=== PATIENT | female | born 1995 | race Caucasian/White ===

== ENCOUNTER 2018-08-26 09:44 | Inpatient (IN) ==
--- OUTSIDE RECORDS SUMMARY | 2018-08-26 13:01 | External Medical Summary | Continuity of Care Document ---
:1995 Author Name Madonna Alexander, Provider Address Unavailable Unavailable , Care Team Providers Name Role Phone Rosie Guy DO Unavailable [email or web address] Unavailable Unavailable Unavailable Unavailable Unavailable Problems related leg pain in third trimester, antepartum (6 46.83) (O26.893) Post term over 40 weeks (645.10) (O48.0) Encounter for supervision of normal preg bethany in multigravida in third trimester (V22.1) (Z34.83) Allergies and Adverse Reactions Pertussis Vaccine (Allergy) Reaction: Se izures Nickel (Allergy) Medications Vitamin TABS Refills: 0 Tums CHEW Refills: 0 Tylenol 500 MG CAPS Refills: 0 Procedures Procedures not documented Immunizations Immunizations not documented Family History Mother Family history of thyroid disease (V18.19) (Z83.49) Status: Active Family history of hypothyroidism (V18.19) (Z83.49) Status: A ctive Father Family history of cardiac disorder (V17.49) (Z82.49) Status: Active Family history of hypertension (V17.49) (Z82.49) Status: Act luis Family history of myocardial infarction (V17.3) (Z82.49) Sta tus: Active Social History - Smoking Status Former smoker Plan of Treatment Planned Observations Planned Goals not documented Results Non-stress test (Pending) Laboratory: In [place] 20-Aug-2018 12:00 Non-Stress Test Non-Reactive Non-stress test (Pending) Laboratory: In [place] 23-Aug-2018 14:43 Non-Stress Test Non-Reactive Vital Signs 23-Aug-2018 11:24 Systolic 122 mm[Hg] Diastolic 80 mm[Hg] Weight 223.8 lb Height 66 in BSA Calculated 2.1 m2 BMI Calculated 36.12 kg/m2 20-Aug-2018 10:50 Systolic 110 mm[Hg] Diastolic 72 mm[Hg] Weight 222.2 lb Height 66 in BSA Calculated 2.09 m2 BMI Calculated 35.86 kg/m2 13-Aug-2018 8:54 Systolic 118 mm[Hg] Diastolic 76 mm[Hg] Weight 221.6 lb Height 66 in BSA Calculated 2.09 m2 BMI Calculated 35.77 kg/m2 06-Aug-2018 13:45 Systolic 116 mm[Hg] Diastolic 78 mm[Hg] Weight 219.4 lb Height 66 in BSA Calculated 2.08 m2 BMI Calculated 35.41 kg/m2 30-Jul-2018 8:58 Systolic 118 mm[Hg] Diastolic 82 mm[Hg] Weight 220.125 lb Height 66 in BSA Calculated 2.08 m2 BMI Calculated 35.53 kg/m2 Encounters Appointment; Rosie Guy DO 23-Aug-2018 12:10 Encounter Diagnosis: Problem not documented Appointment; OB SC1, Nonstress Test 23-Aug-2018 11:30 Encounter Diagnosis: Problem not documented Appointment; OBGYN SC1, Ultrasound 20-Aug-2018 11:30 Encounter Diagnosis: Problem not documented Appointment; Rosie Guy DO 20-Aug-2018 11:00 Encounter Diagnosis: Problem not documented Appointment; OB SC1, Nonstress Test 20-Aug-2018 10:30 Encounter Diagnosis: Problem not documented Appointment; Rosie Guy DO 13-Aug-2018 9:00 Encounter Diagnosis: Problem not documented Appointment; Myrtle Arce M.D. 06-Aug-2018 14:20 Encounter Diagnosis: Problem not documented Appointment; Myrtle Arce M.D. 30-Jul-2018 9:00 Encounter Diagnosis: Problem not documented Appointment; Jluis Lopes M.D. 23-Jul-2018 11:40 Encounter Diagnosis: Problem not documented Appointment; Carlee Goddard M.D. 09-Jul-2018 11:20 Encounter Diagnosis: Problem not documented Appointment; Rosie Guy DO 25-Jun-2018 10:00 Encounter Diagnosis: Problem not documented Appointment; Champ Valles M.D. 11-Jun-2018 9:30 Encounter Diagnosis: Problem not documented Appointment; Carlee Goddard M.D. 28-May-2018 9:40 Encounter Diagnosis: Problem not documented Appointment; Champ Valles M.D. 14-May-2018 11:50 Encounter Diagnosis: Problem not documented Appointment; Rubia Gill M.D. 16-Apr-2018 11:50 Encounter Diagnosis: Problem not documented Appointment; OBGYN SC1, Ultrasound 04-Apr-2018 9:45 Encounter Diagnosis: Problem not documented Appointment; Madisyn Ibarra M.D. 04-Apr-2018 9:30 Encounter Diagnosis: Problem not documented Appointment; Jus Thompson M.D. 08-Mar-2018 10:50 Encounter Diagnosis: Problem not documented Appointment; Jluis Lopes M.D. 12-Feb-2018 9:40 Encounter Diagnosis: Problem not documented Appointment; Madisyn Ibarra M.D. 11-Jan-2018 12:00 Encounter Diagnosis: Problem not documented Appointment; OB SC1, Procedure Rm 11-Jan-2018 12:00 Encounter Diagnosis: Problem not documented Appointment; OBGYN SC2, Ultrasound 11-Jan-2018 11:30 Encounter Diagnosis: Problem not documented Appointment; OB SC1, Nursing Station 03-Jan-2018 13:30 Encounter Diagnosis: Problem not documented Appointment; Adarsh Garcia M.D. 09-May-2017 8:30 Encounter Diagnosis: Problem not documented Appointment; OBGYN SC1, Ultrasound 23-Aug-2018 13:30 Encounter Diagnosis: Problem not documented
--- NOTE | 2018-08-26 13:53 | History & Physical Report ---
Date of Service August 26, 2018 Assessment & Plan (1) Elective induction of labor planned: 22 year old here for induction of labor for post dates * Patient not having signs symptoms of pre eclampsia but tells me she did during delivery of her past and was placed on MgSO4 at that time. * Patient with reassuring FHT * oxytocin 30 units in 500 mL per labor induction protocol * NPO * Anticipate History of Present Illness Primary Care Provider: Jamshid Canada DO Ms. Caitlyn Prince is a 22 year old who is here for induction of labor at 41 weeks for post dates with history of pre eclampsia per patient on last . She has been feeling irregular painful contractions that are occur a couple times per day every day. At one point last week she had three in a row that were 10 minutes apart, but those subsided. She has consistently felt good movement, has not noted any vaginal bleeding or but does feel that she lost her mucus plug last night when she wiped and noticed a dark brown mucus streak on her toilet paper. She has been dealing with heartburn and has no other pain or discomfort. She denies any headache, vision changes or swelling of hands or feet. Her only other resulted in delivery of a healthy girl delivered spontaneously at 40 weeks by Spontaneous vaginal delivery. Blood type is O+, GBS -, Rubella Immune. All other serologic testing normal, no sign of GDM. At last appointment patient was found to be 3/70/-2 on exam. 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 Here with her mother. Allergies Allergy/AdvReac Type Severity Reaction Status Date / Time nickel Allergy RASH Verified 08/26/18 14:39 Pertussis Vaccines Allergy Seizure Verified 08/26/18 14:39 Home Medications Home Medications Medication Instructions Recorded Confirmed Type vit-iron fum-folic ac 1 tab PO DAILY 06/16/18 08/26/18 History [ Vitamin] Past Med/Surg History Medical History History of anemia History of hemorrhage History of induced hypertension Hyperthyroidism Social History Preferred Language: Citizen Of [place] Oxygraph Operator Required: No Beliefs That Will Affect Care: None marital status: Single Current Living Situation: Family Current Living Situation Comment: currently staying with parents, but does have have her own apartment. Other Information That Helps Us Care for You: No Feels Safe at Home: Yes Safety Concerns: Feels Safe At This Time Smoking Status: Former smoker Do You Dip or Chew Tobacco: No Second Hand Exposure: No Tobacco Cessation Education Requested by Patient: No Hx Alcohol Use: No Hx Substance Use: No Review of Systems Review of Systems: All systems reviewed & are unremarkable except as noted in HPI & below Physical Exam Physical Exam: Constitutional: well developed and well nourished; no acute d istress Respiratory: normal respiratory effort, lungs clear to auscultation Cardiovascular: RRR, no murmur, no edema Extremities: no calf tenderness Gastrointestinal (Abdomen): Inspection/Auscultation: + abdomen distended Percussion/Palpation: abdomen soft; abdomen nontender Gravid uterus Skin: no rashes, warm and dry Genitourinary: heart tones present in 130's, appear moderately variable. Pelvic Exam: 40/70/-1 Results & Data Vital Signs (Past 12 Hours) Vital Signs Temp Pulse Resp BP 08/26/18 13:17 83 121/87 08/26/18 13:16 36.8 C 18 Supervising Physician Co-Signing Physician Notes Resident Physician Supervision Note: I interviewed and examined the patient. Discussed with Dr. Freeman and agree with findings and plan as documented in the note. Any exceptions or clarifications are listed here: none. Agree with above. IOL with pitocin. Documented By: Rosie Guy DO Resident Activity Tracking Resident Involvement: Resident Care Provided Care Provided: OB Delivery
[2018-08-26] MEDS ORDERED: OXYTOCIN 30 UNITS/500 ML BAG IV PRN ×3 (14:22→23:23)
[2018-08-26 15:03] LABS: Hematocrit (blood only) 29.8 % (37-47); Hemoglobin 9.9 g/dL (12.0-16.0); Mean Corpuscular Volume 86.1 fL (80-100); Mean Platelet Volume 9.3 fL (7.4-10.4); Platelet Count 273 K/uL (130-400); RDW Coefficient of Variation 13.7 % (11.5-14.5); RDW Standard Deviation 42.9 fL (36.4-46.3); Red Blood Count 3.46 M/uL (4.2-5.4); White Blood Count 10.49 K/uL (4.8-10.8)
[2018-08-26] MEDS: LACTATED RINGER'S 1,000 ML IV PRN ×3 (15:27→20:59)
[2018-08-26 15:34] LABS: Hepatitis B Surface Antibody Non-Immune
[2018-08-26 15:35] LABS: Mean Corpuscular Hgb Conc 33.2 g/dL (32-36)
[2018-08-26] MEDS ORDERED: BUPIVACAINE 0.25% 30 ML VIAL ONE (17:32)
[2018-08-26] MEDS ORDERED: fentaNYL 2MCG/ML ROPIV 1.25MG/ML 100 ML BAG EPI ONE (17:33)
[2018-08-26] MEDS ORDERED: fentaNYL citrate 100 MCG/2 ML VIAL ONE (17:33)
[2018-08-26] MEDS ORDERED: ePHEDrine sulfate 50 MG/ML AMP ONE (17:33)
--- NOTE | 2018-08-26 17:43 | Anesthesiology Consultation ---
Date of Service August 26, 2018 Assessment & Plan Chart Review Chart Review: Patient NOT seen in Pre Admission Testing and Acceptable Risk for Labor Epidural Consults Requested none ASA ASA2 Proposed Anesthesia Anesthesia Type: Labor Epidural and CSE Risk / Benefits Reviewed With: PT / POA / Parent / Guardian, Accepts Plan and Informed Consent Obtained History Height/Weight Height: 5 ft 7 in Weight: 101.378 kg Allergies Allergy/AdvReac Type Severity Reaction Status Date / Time nickel Allergy RASH Verified 08/26/18 14:39 Pertussis Vaccines Allergy Seizure Verified 08/26/18 14:39 Medications Home Medications Medication Instructions Recorded Confirmed Last Taken vit-iron fum-folic ac 1 tab PO DAILY 06/16/18 08/26/18 08/26/18 06:00 [ Vitamin] Active Medications Generic Name Dose Route Start Last Admin Trade Name Freq PRN Reason Stop Dose Admin Lactated Ringer's 1,000 mls @ 125 mls/hr 08/26/18 14:22 08/26/18 17:30 Lr IV 08/28/18 14:21 999 mls/hr .Q8H PRN Infusion L&D Protocol Protocol Oxytocin 30 units in 500 mls @ 3 mls/hr 08/26/18 14:55 08/26/18 16:52 Pitocin IV 08/28/18 14:54 0.18 units/hr .Q24H PRN 3 mls/hr Labor Induction/Augmentation Titration Protocol 0.18 UNITS/HR NPO Date Last Intake of Fluids: 08/26/18 Time Last Intake of Fluids: 17:00 Date Last Intake of Solids: 08/26/18 Time Last Intake of Solids: 12:00 Past Medical History Medical History History of anemia History of hemorrhage History of induced hypertension Hyperthyroidism Exercise / Class Metabolic Activity II 4-5 Yardwork/Stairs/Walk up hill Past Anesthesia History No Hx of Anesthesia Complications and No Family Hx of Anesthesia Complications History of PONV No Hx of PONV Social History Smoking Status: Former smoker Do You Dip or Chew Tobacco: No Hx Alcohol Use: No Hx Substance Use: No substance use type: does not use Review of Systems no chest pain or sob Physical Exam Vital Signs Last Vital Signs Temp 36.8 C 08/26/18 13:16 Pulse 79 05/20/19 17:39 Resp 18 08/26/18 13:16 BP 129/78 08/26/18 17:29 Pulse Ox 100 08/26/18 17:39 ENMT Mouth: no TMJ abnormality Thyromental Distance: > or= 3.5 Finger Breadths Mallampati Class: II Neck normal visual inspection Respiratory normal respiratory effort Auscultation: lungs clear to auscultation bilaterally Cardiovascular Rate/Rhythm: regular rate and regular rhythm Musculoskeletal Spine: normal cervical ROM Neurologic moves all extremities Psychiatric Orientation: alert and oriented x 3 Testing Other Testing WBC 10.5 Hgb 9.9 Plt 273
[2018-08-26] MEDS ORDERED: DiphenhydrAMINE HCL 50 MG/ML VIAL IV PRN (17:58)
[2018-08-26] MEDS ORDERED: ONDANSETRON INJ 2 MG/ML 2 ML VIAL IV PRN (17:58)
[2018-08-26] MEDS ORDERED: ePHEDrine sulfate 50 MG/ML AMP IV PRN (17:58)
[2018-08-26] MEDS ORDERED: NALOXONE HCL 1 MG in SODIUM CHLORIDE 0.9% 1000ML 1,000 ML IV PRN (17:58)
[2018-08-26] MEDS ORDERED: NALOXONE HCL 0.4 MG/1 ML VIAL/CARP IV PRN (17:58)
[2018-08-26] MEDS ORDERED: NALBUPHINE HCL INJ 10 MG/ML AMP IV PRN (17:58)
[2018-08-26] MEDS ORDERED: fentaNYL 2MCG/ML ROPIV 1.25MG/ML 100 ML BAG EPI PRN (17:58)
--- NOTE | 2018-08-26 18:45 | Obstetrical Progress Note ---
Date of Service August 26, 2018 Subjective Comfortable with epidural. FHT Cat 1. [place] Q 2-3 AROM clear fluid. SVE 5-6/70/-1 Anticipate . Results & Data Vital Signs (Past 12 Hours) Vital Signs Temp Pulse Resp BP Pulse Ox 08/26/18 18:42 75 132/73 08/26/18 18:39 91 H 98 08/26/18 18:35 77 132/81 08/26/18 18:34 78 98 08/26/18 18:30 80 123/70 08/26/18 18:29 79 100 08/26/18 18:25 73 114/61 08/26/18 18:24 77 99 08/26/18 18:20 76 133/76 08/26/18 18:19 76 100 08/26/18 18:14 98 H 131/69 100 08/26/18 18:12 93 H 145/82 H 08/26/18 18:10 88 141/89 H 08/26/18 18:09 101 H 100 08/26/18 18:08 89 139/74 08/26/18 18:06 93 H 146/80 H 08/26/18 18:04 100 H 145/80 H 100 08/26/18 18:02 85 142/80 H 08/26/18 18:00 87 133/80 08/26/18 17:59 89 100 08/26/18 17:58 85 128/109 H 08/26/18 17:54 71 100 08/26/18 17:51 98 H 88 L 08/26/18 17:49 96 H 100 08/26/18 17:45 87 92 08/26/18 17:44 84 98 08/26/18 17:39 79 100 08/26/18 17:29 81 129/78 08/26/18 16:29 58 L 113/69 08/26/18 15:27 68 127/79 08/26/18 13:17 83 121/87 08/26/18 13:16 98.2 F 18
--- NOTE | 2018-08-26 23:12 | Procedure Note ---
Vaginal Delivery Summary Date of Service August 26, 2018 Vaginal Delivery Summary Vaginal Delivery Summary: Pre-delivery diagnoses: 22yo @ 41w, IOL for postdates Post-delivery diagnoses: same Procedure: spontaneous vaginal delivery, repair of 1st degree perineal lace ration Surgeon: Rosie Guy DO Complications: none Findings: Viable . Apgars: 8/9. Weight pending, please see nursery records Estimated blood loss: 300ml Description of delivery: The patient progressed to complete with epidural anesthesia. She then began to push. She spontaneously vaginally delivered a viable from the cephalic presentation. The head delivered in VAHID po sition. Nuchal cord x 1 easily reduced. The anterior shoulder delivered, followed by the posterior shoulder, followed by the body. The baby was placed on mother's abdomen and a spontaneous cry was heard. Delayed cord clamping was employed, and the cord was doubly clamped and cut. Cord blood was obtained. The placenta was delivered spontaneously intact with a 3-vessel cord. The uterus and vagina were swept of clots and debris. IV pitocin was given. The uterus became firm. The cervix, vagina, and perineum were inspected and a first degree perineal lacerations was noted and repaired in standard fashion with 3-0 vicryl. Additional [id number] sutures were needed to control bleeding at the perineal laceration. Excellent hemostasis was ultimately observed. The mother and baby are recovering in stable and good condition in the room. Sponge and instrument and needle counts were correct x 2. Rosie Guy, [facility]
[2018-08-26] MEDS ORDERED: HYDROCORTISONE ACETATE 25 MG SUPP PR PRN (23:23)
[2018-08-26] MEDS ORDERED: BISACODYL 10 MG SUPP PR PRN (23:23)
[2018-08-26] MEDS ORDERED: DIPHTHERIA/TETANUS/PERTUSSIS 0.5 ML SYR/VIAL IM ONE (23:23)
[2018-08-26] MEDS ORDERED: OXYCODONE/ACETAMINOPHEN 5mg/325mg TAB PO PRN (23:23)
[2018-08-26] MEDS ORDERED: ACETAMINOPHEN 325 MG TAB PO PRN (23:23)
[2018-08-26] MEDS ORDERED: BENZOCAINE 20% AER SPR 82.5 GM CAN EXT PRN (23:23)
[2018-08-26] MEDS ORDERED: SUPERCREAM 0.870% 15 GM JAR EXT PRN (23:23)
--- NOTE | 2018-08-27 00:09 | Anesthesia Procedure Note ---
Date of Service August 27, 2018 Anesthesia Post Epidural Note Vital Signs Vital Signs: Temp Pulse Resp BP Pulse Ox 08/26/18 23:53 86 118/75 0520 23:42 82 126/76 05 23:38 92 H 130/103 H 0520 23:23 72 130/100 05 23:20 78 140/88 0520 22:53 71 18 143/86 H 05 22:38 66 145/79 H 08/26/18 22:24 77 122/73 0520 22:08 89 133/77 05 21:54 85 100 0520 21:49 97 H 100 05 21:44 105 H 100 05 21:39 93 H 100 05 21:38 83 139/95 05 21:34 79 100 05 21:29 58 L 100 05 21:25 69 130/84 05 21:24 67 99 05 21:19 60 100 0520 21:14 72 100 05 21:09 60 135/84 100 0520 21:04 75 100 05 21:00 36.9 C 18 08/26/18 20:59 74 99 052019 20:55 78 132/91 0519 20:54 75 100 052019 20:49 72 100 052019 20:44 67 100 052019 20:39 71 123/82 100 052019 20:34 73 100 052019 20:30 18 052019 20:29 67 100 05/2019 20:24 86 100 0520/19 20:23 82 126/78 052019 20:19 86 100 052019 20:14 82 100 052019 20:09 89 128/81 100 052019 20:04 111 H 99 0520 20:00 18 0520 19:59 77 100 052019 19:54 73 99 052019 19:53 64 130/80 0520 19:49 72 100 0520/19 19:44 70 99 0520/19 19:39 83 96 0520/19 19:38 67 137/84 0520/19 19:34 70 99 052019 19:30 16 052019 19:29 78 97 052019 19:24 109 H 100 05 19:19 69 100 0520 19:15 16 0520 19:14 84 98 0520 19:09 75 100 0520 19:08 73 117/59 L 05 19:06 76 185/74 H 05 19:04 70 100 0520 19:00 36.7 C 77 18 126/84 0520 18:59 76 100 05 18:56 82 128/84 0520 18:54 97 H 100 05 18:51 77 120/73 0520 18:49 70 98 05 18:47 80 123/59 L 08/26/18 18:45 20 0520 18:44 74 98 0520 18:42 75 132/73 0520/19 18:39 91 H 98 05 18:35 77 132/81 0520 18:34 78 98 05 18:30 80 16 123/70 0520/19 18:29 79 100 052019 18:25 73 114/61 0520/19 18:24 77 99 0520 18:20 76 133/76 0520 18:19 76 100 052019 18:15 18 05 18:14 98 H 131/69 100 052019 18:12 93 H 145/82 H 0520 18:10 88 141/89 H 0520 18:09 101 H 100 0520 18:08 89 139/74 0520 18:06 93 H 146/80 H 0520 18:04 100 H 145/80 H 100 0520 18:02 85 142/80 H 0520 18:00 87 16 133/80 0520 17:59 89 100 0520 17:58 85 128/109 H 08/26/18 17:54 71 100 08/26/18 17:51 98 H 88 L 08/26/18 17:49 96 H 100 08/26/18 17:45 87 92 08/26/18 17:44 84 98 08/26/18 17:39 79 100 08/26/18 17:29 81 129/78 08/26/18 16:29 58 L 113/69 08/26/18 15:27 68 127/79 08/26/18 13:17 83 121/87 08/26/18 13:16 36.8 C 18 Notes Mental Status: alert / awake / arousable and participated in evaluation Nausea / Vomiting: adequately controlled Pain: adequately controlled Airway Patency, RR, SpO2: stable & adequate BP & HR: stable & adequate Hydration State: stable & adequate Neuraxial Anesthesia: was administered and sensory block is resolving Anesthetic Complications: no major complications apparent and Pt Satisfied with anesthetic care Epidural: Removed without complications and With tip intact
[2018-08-27] MEDS: IBUPROFEN 600 MG TAB PO PRN ×4 (04:45→20:22)
[2018-08-27 06:43] LABS: Hematocrit (blood only) 26.8 % (37-47)
--- NOTE | 2018-08-27 07:42 | Obstetrical Progress Note ---
Date of Service <Garrison Freeman MD - Last Filed: 08/27/18 07:42> August 27, 2018 Assessment & Plan <Garrison Freeman MD - Last Filed: 08/27/18 07:42> (1) (normal spontaneous vaginal delivery): 22 year old day 1 s/p Vital Signs Reviewed and WNL Hemoglobin 9.9 Blood type O+, GBS -, Rubella Immune Patient doing very well clinically, eating, walking, passing gas, and using restroom without difficulty Encouraged ambulation as tolerated Bottle feeding Subjective <Garrison Freeman MD - Last Filed: 08/27/18 07:42> Ambulation: ambulating normally Voiding: no voiding problems Passing Gas:: Yes Diet Tolerance:: regular diet Lochia:: Moderate Feeding Type:: bottle feeding MIld crampy abdominal pain Constitutional: no fever and no chills Respiratory: no cough and no dyspnea Cardiovascular: no chest pain Gastrointestinal: no nausea and no vomiting Physical Exam <Garrison Freeman MD - Last Filed: 08/27/18 07:42> Vital Signs (Past 24 Hours) Last Vital Signs Temp 36.6 C 08/27/18 04:35 Pulse 76 08/27/18 04:35 Resp 16 08/27/18 04:35 BP 117/85 08/27/18 04:35 Pulse Ox 100 08/27/18 04:35 Constitutional well developed and well nourished; no acute distress Respiratory normal respiratory effort, lungs clear to auscultation Cardiovascular Rate/Rhythm: regular rate and regular rhythm Heart Sounds: normal S1 and normal S2; no click, no gallop, no murmur and no cardiac rub Extremities: no calf tenderness <Rosie Guy DO - Last Filed: 08/27/18 07:59> Co-Signing Physician Notes Resident Physician Supervision Note: I was present with Dr. Freeman during the history and exam. I discussed the case with the resident and agree with the findings and plan as documented in the note. Any exceptions or clarifications are listed here: PPD#1 doing well. Documented By: Rosie Guy DO Resident Activity Tracking <Garrison Freeman MD - Last Filed: 08/27/18 07:42> Resident Involvement: Resident Care Provided Care Provided: [facility]
[2018-08-27] MEDS: DOCUSATE SODIUM 100 MG CAP PO SCH ×2 (08:05→20:22)
[2018-08-27] MEDS: PRENATAL VITAMIN 1 TAB PO SCH (08:05)
[2018-08-27] MEDS ORDERED: BISACODYL 5 MG TABEC PO SCH (20:00)
[2018-08-28] MEDS: IBUPROFEN 600 MG TAB PO PRN ×2 (02:14→09:25)
--- NOTE | 2018-08-28 07:04 | Obstetrical Progress Note ---
Date of Service <Garrison Freeman MD - Last Filed: 08/28/18 07:04> August 28, 2018 Assessment & Plan <Garrison Freeman MD - Last Filed: 08/28/18 07:04> (1) (normal spontaneous vaginal delivery): 22 year old day 2 s/p Vital Signs Reviewed and WNL Hemoglobin 9.9 yesterday bleeding light today Blood type O+, GBS -, Rubella Immune Patient doing very well clinically, eating, walking, passing gas, and using restroom without difficulty Encouraged continued ambulation as tolerated Bottle feeding Counseled on all discharge instructions Subjective <Garrison Freeman MD - Last Filed: 08/28/18 07:04> Ambulation: ambulating normally Voiding: no voiding problems Passing Gas:: Yes Diet Tolerance:: regular diet Lochia:: Small Feeding Type:: bottle feeding Current Pain Level(1-10): 0 Constitutional: no fever, no chills and no fatigue Respiratory: no cough and no dyspnea Cardiovascular: no chest pain and no radiating jaw, neck or arm pain Gastrointestinal: no nausea and no vomiting Physical Exam <Garrison Freeman MD - Last Filed: 08/28/18 07:04> Vital Signs (Past 24 Hours) Last Vital Signs Temp 36.6 C 08/27/18 23:25 Pulse 61 08/27/18 23:25 Resp 18 08/27/18 23:25 BP 112/72 08/27/18 23:25 Pulse Ox 98 08/27/18 19:36 Constitutional well developed and well nourished; no acute distress Respiratory normal respiratory effort, lungs clear to auscultation Cardiovascular Rate/Rhythm: regular rate and regular rhythm Heart Sounds: normal S1 and normal S2; no click, no gallop, no murmur and no cardiac rub Extremities: no calf tenderness Genitourinary OB Exam Abdomen: + fundal height Fundus: + firm and + relation to umbilicus (2 cm below umbilicus); not tender <Champ Valles Jr, MD, FACOG - Last Filed: 08/28/18 07:50> Co-Signing Physician Notes Resident Physician Supervision Note: I was present with Dr. Freeman during the history and exam. I discussed the case with the resident and agree with the findings and plan as documented in the note. Any exceptions or clarifications are listed here: Patient desires d/c. Instructions given, f/u in 6 weeks. Documented By: Champ Valles Jr, MD, FACOG Resident Activity Tracking <Garrison Freeman MD - Last Filed: 08/28/18 07:04> Resident Involvement: Resident Care Provided Care Provided: Adult [facility] Medicine
[2018-08-28] MEDS: DOCUSATE SODIUM 100 MG CAP PO SCH (09:25)
[2018-08-28] MEDS: PRENATAL VITAMIN 1 TAB PO SCH (09:25)
[2018-08-29 10:44] LABS: Chlamydia Trach RNA NOT DETECTED (NOT DETECTED); GC (Neis gonorrhoeae) RNA NOT DETECTED (NOT DETECTED); Hepatitis C Vira RNA (Log) PCR <1.18 NOT DETECTED LOG IU/ML (<1.18); Hepatitis C Viral RNA by PCR <15 NOT DETECTED IU/ML (<15)
== END 2018-08-28 15:42 | disposition home or self-care (01) | DRG 807 ==
LOC: 4S1 12:57 → 4S2 08-27 00:59

== ENCOUNTER 2021-01-06 22:13 | Inpatient (IN) ==
[2021-01-06 22:53] LABS: Basophils # (auto) 0.07 K/uL (0-0.2); Basophils % (auto) 0.5 %; Eosinophils # (auto) 0.39 K/uL (0-0.5); Hematocrit (blood only) 40.8 % (37-47); Hemoglobin 14.4 g/dL (12.0-16.0); Immature Granulocytes # (auto) 0.06 K/uL (0.00-0.02); Immature Granulocytes % (auto) 0.5 %; Lymphocytes % (auto) 24.2 %; Mean Corpuscular Hemoglobin 30.4 pg (25-34); Mean Corpuscular Hgb Conc 35.3 g/dL (32-36); Mean Corpuscular Volume 86.1 fL (80-100); Mean Platelet Volume 10.5 fL (7.4-10.4); Monocytes # (auto) 0.67 K/uL (0.11-0.59); Monocytes % (auto) 5.1 %; Neutrophils # (auto) 8.83 K/uL (1.4-6.5); Neutrophils % (auto) 66.7 %; Platelet Count 510 K/uL (130-400); RDW Coefficient of Variation 12.3 % (11.5-14.5); RDW Standard Deviation 38.5 fL (36.4-46.3); Red Blood Count 4.74 M/uL (4.2-5.4); White Blood Count 13.22 K/uL (4.8-10.8)
[2021-01-06 23:12] LABS: Pregnancy Test, Serum Negative (Negative)
[2021-01-06 23:21] LABS: Albumin Globulin Ratio 0.9 (0.9-2); Albumin Level 4.1 gm/dl (3.4-5.0); BUN Creatinine Ratio 11.9 (10-20); Bilirubin,Total 0.6 mg/dl (0.2-1); Creatinine Clr Calc Pharmacy 71.3 ml/min; Est GFR (African American) 57.4 ml/min; Est GFR (Non-African American) 49.5 ml/min; Globulin 4.5 gm/dl (2.5-4.0); Potassium 3.9 mmol/L (3.5-5.1); Total Protein 8.6 gm/dl (6.4-8.2)
[2021-01-06 23:36] LABS: Beta-Hydroxybutyrate 7.81 mg/dl (0.2-2.81)
[2021-01-06] MEDS ORDERED: INSULIN HUMAN REGULAR IV STA (23:45)
[2021-01-06] MEDS ORDERED: SODIUM CHLORIDE 0.9% 1000ML 2,000 ML IV ONE (23:45)
--- NOTE | 2021-01-06 23:50 | Emergency Department Note ---
Impression & Plan Acute hyperglycemia, Acute pancreatitis, Acute dehydration ED Provider Note Name: FELIX SIERRA Age: 25 Sex: F Arrives Via: Walk-In Informant: Patient ED Provider: Wilmer Wilkinson MD Chief Complaint: abdominal pain Impression: Acute Pancreatitis Acute Dehydration Acute Hyperglycemia Medical Decision Makin yr old female with several weeks of worsening weakness, fatigue and urinary frequency. Developed abdominal pain 2 weeks ago and diagnosed with pancreatitis with hyperglycemia at [facility] where she was admitted for 6 days and discharged a few days ago. Worsening symptoms and seen by PCP who sent her to ED this evening for evaluation. Mild upper abdominal TTP and given history felt imaging warranted. CT with acute pancreatitis otherwise ok. Labs with Lipase elevation, mild cr bump consistent with dehydration, and elevated BSG, but I no clear evidence of DKA. Moderate triglyceride elevation. Received 2 L NSS Bolus and insulin IV with improvement in BSG. She will need further management and hospitalist consulted. Patient feeling much better with IV fluids and treatment. No headache, neuro deficits, chest pain nor other symptoms. Prior Medical Record and Triage/Nursing Notes reviewed by Me Additional history obtained from chart Differentials:Infection, dehydration, metabolic abnormality, hypo/hyperglycemia, electrolyte disturbance, anemia, hypoxia, cardiac sources, intracerebral event, toxicologic, neurologic, as well as other pathologies. Vital Signs: reviewed and remarkable for no significant abnormalities Interventions: saline lock, nss bolus 2 L IV, insulin 8 U IV Labs:Reviewed and remarkable for elevated glucose, mild cr elevation, elevated triglyceride Imaging:[facility] Radiologist interpretation reviewed by me: ct a/p : acute pancreatitis Consults:Dr America YANG Hospitalist Plan: Disposition:Hospitalization. Condition: Good History of Present Illness:25 yr old female arrives for evaluation of weakness. Patient notes 3 weeks of worsening fatigue, exhaustion and left upper abdominal pain. Pain radiates to left flank and LLQ and sometimes RUQ. Worse with movement and eating. Better with rest. States she urinates constantly. Denies nausea, vomiting, fevers, chills, syncope, sob, headache, neck pain, bowel symptoms, leg swelling, rashes, nor other symptoms. Notes pain was worse previously when playing with her 2 year old who was jumping on her abdomen. Last week she was seen at [place] and admitted for 6 days, discharged on Zof ran and Pain medications. Denies history DMII nor other medical issues. Very rare ETOH use. No previous abdominal surgeries. No medications prior to arrival. ROS: See above HPI for pertinent positives & negatives. A total of 10 systems reviewed and were otherwise negative. 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 EYES: No scleral icterus, unremarkable pupils. ENT: Mucous membranes dry, no nasal congestion. NECK: No masses appreciated, nomeningismus, trachea is midline. RESPIRATORY: No dyspnea. Clear to auscultation and equal bilaterally. No wheeze, no rhonchi. CARDIOVASCULAR: Regular rate and rhythm.No murmurs, rubs, gallops appreciated. GASTROINTESTINAL: Diffuse upper abdominal TTP, no peritonitis.Bowel sounds positive.No masses appreciated. BACK: No midline tenderness, no CVA tenderness EXTREMITIES: Normal motion all extremities, no cyanosis, no edema. NEUROLOGIC: Alert and oriented, no acute motor or sensory deficits, no focal weakness, cranial nerves grossly intact. SKIN: No rash, no jaundice, no diaphoresis. PSYCH: Appropriate GCS: 15 ED Course: Times/Reassessments: much improved with fluids and BSG improving. Comfortable with plan for hospitalization and further management. Wilmer Wilkinson MD Past Med/Surg History Medical History (Updated 01/06/21 @ 23:46 by Wilmer Wilkinson MD) History of anemia History of chlamydia infection History of hemorrhage History of induced hypertension Hyperthyroidism Surgical History No pertinent past surgical history Family History Mother Hypothyroidism Father Cardiac disorder Myocardial infarction Hypertension Other No pertinent family history Denies family history of Ovarian cancer Breast cancer Colorectal cancer Social History (Updated 09/09/20 @ 11:32 by Madisyn Oleary MA) Smoking Status: Never smoker Age Quit Using Tobacco: 22; Second Hand Exposure: No; Hx Alcohol Use: No Hx Substance Use: No Preferred Language: Central African Communication Ability: Effective Track 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 Supervisor Required: No Beliefs That Will Affect Care: None marital status: Single Current Living Situation: Family current occupational status: employed How many Children do You have: 2 Feels Safe at Home: Yes Childhood Exposure to Second-Hand Smoke: No Dental Care, Regularly: Yes Assistive Devices: None Allergies Allergies Allergy/AdvReac Type Severity Reaction Status Date / Time nickel Allergy RASH Verified 01/06/21 10:23 Pertussis Vaccines Allergy Seizure Verified 01/06/21 10:23 Home Meds Home Medications Medication Instructions Recorded Confirmed levonorgestrel 20 mcg/24 hours (6 20 mcg IU CONTINOUS ea 11/21/18 01/06/21 yrs) 52 mg intrauterine device (Mirena) ondansetron HCl 4 mg tablet 4 mg PO Q8 PRN 01/06/21 01/06/21 oxycodone 5 mg tablet 5 mg PO Q4 PRN 01/06/21 01/06/21 Previous Rx's Medication Instructions Recorded omeprazole 20 mg capsule,delayed 20 mg PO DAILY #30 cap 01/06/21 release triamcinolone acetonide 0.1 % 1 applic TOPICAL BID #30 g 01/06/21 topical cream Results & Data (ED) Vital Signs Vital Signs - 24 hr 01/06/21 22:17 01/07/21 00:51 Temperature 36.9 C Temperature Source Temporal Artery Scan Pulse Rate 91 H Pulse Rate [Finger] 86 Respiratory Rate 20 20 Respiratory Effort / Characteristics Non-Labored Non-Labored Spontaneous Respiratory Depth Normal Normal Respiratory Pattern Regular Blood Pressure 131/98 Blood Pressure [Right Arm] 97/77 L Blood Pressure Mean 109 Blood Pressure Mean [Right Arm] 83 Blood Pressure Position Sitting Pulse Oximetry 100 98 Oxygen Delivery Method Room Air Room Air Sepsis Recent Fever Within 48 Hours No Sepsis New/Unexplained Change in Mental Status N/A Sepsis Action Taken by Nursing No Action Required Laboratory Data Result diagrams: 01/06/21 22:34 01/06/21 22:34 Lab Results 01/06/21 01/06/21 01/06/21 Range/Units 22:21 22:34 22:34 WBC 13.22 H (4.8-10.8) K/uL RBC 4.74 (4.2-5.4) M/uL Hgb 14.4 (12.0-16.0) g/dL Hct 40.8 (37-47) % MCV 86.1 (80-100) fL MCH 30.4 (25-34) pg MCHC 35.3 (32-36) g/dL RDW Std Deviation 38.5 (36.4-46.3) fL RDW Coeff of Paz 12.3 (11.5-14.5) % Plt Count 510 H (130-400) K/uL MPV 10.5 H (7.4-10.4) fL Immature Gran % (Auto) 0.5 % Neut % (Auto) 66.7 % Lymph % (Auto) 24.2 % Gilmer % (Auto) 5.1 % Eos % (Auto) 3.0 % Baso % (Auto) 0.5 % Neut # (Auto) 8.83 H (1.4-6.5) K/uL Lymph # (Auto) 3.20 (1.2-3.4) K/uL Gilmer # (Auto) 0.67 H (0.11-0.59) K/uL Eos # (Auto) 0.39 (0-0.5) K/uL Baso # (Auto) 0.07 (0-0.2) K/uL Immature Gran # (Auto) 0.06 H (0.00-0.02) K/uL Sodium 129 L (136-145) mmol/L Potassium 3.9 (3.5-5.1) mmol/L Chloride 96 L (98-107) mmol/L Carbon Dioxide 23 (21-32) mmol/L Anion Gap 10.0 (3-11) BUN 17 (7-18) mg/dl Creatinine 1.46 H (0.6-1.2) mg/dl Est Cr Clr Drug Dosing 71.3 ml/min Est GFR ( Amer) 57.4 ml/min Est GFR (Non-Af Amer) 49.5 ml/min BUN/Creatinine Ratio 11.9 (10-20) Glucose 534 H* (70-99) mg/dl POC Glucose 547 H* (70-99) mg/dl Calcium 10.0 (8.5-10.1) mg/dl Total Bilirubin 0.6 (0.2-1) mg/dl AST 24 (15-37) U/L ALT 45 (12-78) U/L Alkaline Phosphatase 123 H (45-117) U/L Total Protein 8.6 H (6.4-8.2) gm/dl Albumin 4.1 (3.4-5.0) gm/dl Globulin 4.5 H (2.5-4.0) gm/dl Albumin/Globulin Ratio 0.9 (0.9-2) Triglycerides 509 H (0-150) mg/dl Cholesterol 173 (0-200) mg/dl LDL Cholesterol, Calc mg/dl VLDL Cholesterol, Calc mg/dl HDL Cholesterol 27 mg/dl Cholesterol/HDL Ratio 6 Lipase 1621 H (73-393) U/L Beta-Hydroxybutyric Acd 7.81 H (0.2-2.81) mg/dl HCG, Qual (Negative) Urine Color Urine Appearance (Clear) Urine pH (4.5-7.5) Ur Specific [place] (1.000-1.030) Urine Protein (Negative) Urine Glucose (UA) (Negative) Urine Ketones (Negative) Urine Blood (Negative) Urine Nitrite (Negative) Urine Bilirubin (Negative) Urine Urobilinogen (Negative) Ur Leukocyte Esterase (Negative) Urine WBC (Auto) (0-5) /hpf Urine RBC (Auto) (0-4) /hpf U Hyaline Cast (Auto) (0-5) /lpf U Epithel Cells (Auto) (0-5) /lpf Urine Bacteria (Auto) (Negative) COVID-19 Eval Order SARS-CoV-2 (PCR) (Negative) 01/06/21 01/07/21 01/07/21 Range/Units 22:34 00:12 00:54 WBC (4.8-10.8) K/uL RBC (4.2-5.4) M/uL Hgb (12.0-16.0) g/dL Hct (37-47) % MCV (80-100) fL MCH (25-34) pg MCHC (32-36) g/dL RDW Std Deviation (36.4-46.3) fL RDW Coeff of Paz (11.5-14.5) % Plt Count (130-400) K/uL MPV (7.4-10.4) fL Immature Gran % (Auto) % Neut % (Auto) % Lymph % (Auto) % Gilmer % (Auto) % Eos % (Auto) % Baso % (Auto) % Neut # (Auto) (1.4-6.5) K/uL Lymph # (Auto) (1.2-3.4) K/uL Gilmer # (Auto) (0.11-0.59) K/uL Eos # (Auto) (0-0.5) K/uL Baso # (Auto) (0-0.2) K/uL Immature Gran # (Auto) (0.00-0.02) K/uL Sodium (136-145) mmol/L Potassium (3.5-5.1) mmol/L Chloride (98-107) mmol/L Carbon Dioxide (21-32) mmol/L Anion Gap (3-11) BUN (7-18) mg/dl Creatinine (0.6-1.2) mg/dl Est Cr Clr Drug Dosing ml/min Est GFR ( Amer) ml/min Est GFR (Non-Af Amer) ml/min BUN/Creatinine Ratio (10-20) Glucose (70-99) mg/dl POC Glucose (70-99) mg/dl Calcium (8.5-10.1) mg/dl Total Bilirubin (0.2-1) mg/dl AST (15-37) U/L ALT (12-78) U/L Alkaline Phosphatase (45-117) U/L Total Protein (6.4-8.2) gm/dl Albumin (3.4-5.0) gm/dl Globulin (2.5-4.0) gm/dl Albumin/Globulin Ratio (0.9-2) Triglycerides (0-150) mg/dl Cholesterol (0-200) mg/dl LDL Cholesterol, Calc mg/dl VLDL Cholesterol, Calc mg/dl HDL Cholesterol mg/dl Cholesterol/HDL Ratio Lipase (73-393) U/L Beta-Hydroxybutyric Acd (0.2-2.81) mg/dl HCG, Qual Negative (Negative) Urine Color Yellow Urine Appearance Cloudy A (Clear) Urine pH 5.0 (4.5-7.5) Ur Specific [place] 1.036 H (1.000-1.030) Urine Protein 2+ H (Negative) Urine Glucose (UA) 3+ H (Negative) Urine Ketones 1+ H (Negative) Urine Blood 2+ H (Negative) Urine Nitrite Negative (Negative) Urine Bilirubin Negative (Negative) Urine Urobilinogen Negative (Negative) Ur Leukocyte Esterase Negative (Negative) Urine WBC (Auto) >30 H (0-5) /hpf Urine RBC (Auto) 0-4 (0-4) /hpf U Hyaline Cast (Auto) 1-5 (0-5) /lpf U Epithel Cells (Auto) >30 H (0-5) /lpf Urine Bacteria (Auto) 2+ H (Negative) COVID-19 Eval Order Covid19 at [facility] SARS-CoV-2 (PCR) (Negative) 01/07/21 01/07/21 01/07/21 Range/Units 00:54 01:14 02:17 WBC (4.8-10.8) K/uL RBC (4.2-5.4) M/uL Hgb (12.0-16.0) g/dL Hct (37-47) % MCV (80-100) fL MCH (25-34) pg MCHC (32-36) g/dL RDW Std Deviation (36.4-46.3) fL RDW Coeff of Paz (11.5-14.5) % Plt Count (130-400) K/uL MPV (7.4-10.4) fL Immature Gran % (Auto) % Neut % (Auto) % Lymph % (Auto) % Gilmer % (Auto) % Eos % (Auto) % Baso % (Auto) % Neut # (Auto) (1.4-6.5) K/uL Lymph # (Auto) (1.2-3.4) K/uL Gilmer # (Auto) (0.11-0.59) K/uL Eos # (Auto) (0-0.5) K/uL Baso # (Auto) (0-0.2) K/uL Immature Gran # (Auto) (0.00-0.02) K/uL Sodium (136-145) mmol/L Potassium (3.5-5.1) mmol/L Chloride (98-107) mmol/L Carbon Dioxide (21-32) mmol/L Anion Gap (3-11) BUN (7-18) mg/dl Creatinine (0.6-1.2) mg/dl Est Cr Clr Drug Dosing ml/min Est GFR ( Amer) ml/min Est GFR (Non-Af Amer) ml/min BUN/Creatinine Ratio (10-20) Glucose (70-99) mg/dl POC Glucose 209 H 234 H (70-99) mg/dl Calcium (8.5-10.1) mg/dl Total Bilirubin (0.2-1) mg/dl AST (15-37) U/L ALT (12-78) U/L Alkaline Phosphatase (45-117) U/L Total Protein (6.4-8.2) gm/dl Albumin (3.4-5.0) gm/dl Globulin (2.5-4.0) gm/dl Albumin/Globulin Ratio (0.9-2) Triglycerides (0-150) mg/dl Cholesterol (0-200) mg/dl LDL Cholesterol, Calc mg/dl VLDL Cholesterol, Calc mg/dl HDL Cholesterol mg/dl Cholesterol/HDL Ratio Lipase (73-393) U/L Beta-Hydroxybutyric Acd (0.2-2.81) mg/dl HCG, Qual (Negative) Urine Color Urine Appearance (Clear) Urine pH (4.5-7.5) Ur Specific [place] (1.000-1.030) Urine Protein (Negative) Urine Glucose (UA) (Negative) Urine Ketones (Negative) Urine Blood (Negative) Urine Nitrite (Negative) Urine Bilirubin (Negative) Urine Urobilinogen (Negative) Ur Leukocyte Esterase (Negative) Urine WBC (Auto) (0-5) /hpf Urine RBC (Auto) (0-4) /hpf U Hyaline Cast (Auto) (0-5) /lpf U Epithel Cells (Auto) (0-5) /lpf Urine Bacteria (Auto) (Negative) COVID-19 Eval Order SARS-CoV-2 (PCR) NEGATIVE (Negative) Administered Medications Discontinued Medications Sodium Chloride (Nss 1000ml) 2,000 mls @ 999 mls/hr IV .Q2H1M ONE Stop: 01/07/21 01:45 Last Infusion: 01/07/21 02:32 Dose: 0 mls/hr Documented by: [id number] Admin: 01/07/21 00:05 Dose: 999 mls/hr Documented by: [id number] Insulin Human Regular 8 units/ (Syringe) 8 mls @ 30 mls/min IV ONE ONE Stop: 01/06/21 23:56 Last Admin: 01/07/21 00:03 Dose: 30 mls/min Documented by: [id number] Cosigned by: [id number] Ioversol (Optiray 320 100ml) 93 ml IV ONCE ONE Stop: 01/07/21 00:39 Last Admin: 01/07/21 00:39 Dose: 1 ml Documented by: [id number] Discharge Plan Visit Data Chief Complaint: GI Assessment Stated Complaint: ABD PAIN, POSSIBLE PANCREATITIS, HIGH BLOOD SUGAR ED Provider: Wilmer Wilkinson Discharge Problem: Acute hyperglycemia, Acute pancreatitis, Acute dehydration Forms Stand Alone Forms: [facility] [employer] Prescriptions Prescriptions: No Action omeprazole 20 mg capsule,delayed release(DR/EC) 20 mg PO DAILY Qty: 30 RF: 2 triamcinolone acetonide 0.1 % cream 1 applic topical BID Qty: 30 RF: 1 Mirena 20 mcg/24 hours (5 yrs) 52 mg intrauterine device 20 mcg IU CONTINOUS RF: 0 ondansetron HCl 4 mg tablet 4 mg PO Q8 PRN (Reason: Nausea And Vomiting) RF: 0 oxycodone 5 mg tablet 5 mg PO Q4 PRN (Reason: Pain, Severe) RF: 0 Referrals Referrals: Jamshid Canada DO [Primary Care Provider] - Discharge Problem: Acute pancreatitis Qualifiers: Pancreatitis type: other Acute pancreatitis complication: unspecified Qualified Code(s): K85.80 - Other acute pancreatitis without necrosis or infection
[2021-01-06] MEDS ORDERED: INSULIN HUMAN REGULAR PER UNIT 8 UNITS in SYRINGE 7.92 ML IV ONE (23:55)
[2021-01-07] MEDS ORDERED: OPTIRAY 320 100ml IV ONE (00:38)
[2021-01-07 01:12] LABS: Appearance Urine Cloudy (Clear); Bacteria Urine Automated 2+ (Negative); Bilirubin Urine Negative (Negative); Blood Urine 2+ (Negative); Color Urine Yellow; Epithelial Cell Urine Auto >30 /lpf (0-5); Glucose Urine UA 3+ (Negative); Ketones Urine 1+ (Negative); Leukocyte Esterase Urine Negative (Negative); Nitrite Urine Negative (Negative); Protein Urine 2+ (Negative); Specific Gravity Urine 1.036 (1.000-1.030); Urobilinogen Urine Negative (Negative); WBC Urine Automated >30 /hpf (0-5)
[2021-01-07 01:37] LABS: RBC Urine Automated 0-4 /hpf (0-4)
--- NOTE | 2021-01-07 02:31 | History & Physical Report ---
Date of Service January 07, 2021 Assessment & Plan (1) Acute pancreatitis: Plan: Acute pancreatitis- CT scan of abdomen and pelvis with contrast shows peripancreatic fat stranding consistent with acute pancreatitis Lipase upon admission 1621 We will follow labs serially. Full liquid diet as tolerated, although patient not interested at this time Likely associated with hyperglycemia and new onset of diabetes mellitus Triglycerides mildly elevated at 509, not likely causal of pancreatitis. (2) Acute hyperglycemia: Plan: Acute hyperglycemia, without diagnosis of diabetes mellitus- Patient reports generalized fatigue over the past 2 months, which retrospectively may have been the beginnings of elevated blood sugars Glucose on admission was 534, for which she received 8 units of regular insulin IV, and 2 L normal saline, which reduced her glucose to the low 200s. Check hemoglobin A1c in the a.m. Place on Accu-Cheks before meals and at bedtime with NovoLog coverage per scale. Follow command of insulin she requires, to determine what her discharge medications would be, whether oral or insulin or both (3) Acute dehydration: Plan: Improved with 2 L normal saline. She be placed on NSS + KCl 20 mEq at 100 mils per hour x1 L (4) Gastritis: Plan: She has been on omeprazole in the past. Will place on famotidine 20 mg IV every 12 hours History of Present Illness Chief Complaint: The patient is referred to the emergency department by her PCP, due to several weeks of worsening weakness, fatigue and abdominal pain. Primary Care Provider: Jamshid Ruth DO The patient is a 25-year-old female with a past medical history including gastritis, pancreatitis, IUD, and obesity. She was most recently admitted to [facility] 2 weeks ago, at which time she was diagnosed with pancreatitis and hyperglycemia. She reportedly was admitted there for 6 days, and discharged a few days ago. Since that time, her symptoms have worsened, and has been sent to the ED by her PCP for further assessment evaluation. Allergies Allergy/AdvReac Type Severity Reaction Status Date / Time nickel Allergy RASH Verified 01/06/21 10:23 Pertussis Vaccines Allergy Seizure Verified 01/06/21 10:23 Home Medications Medication Instructions Recorded Confirmed Type levonorgestrel 20 mcg/24 hours (6 20 mcg IU CONTINOUS ea 11/21/18 01/06/21 History yrs) 52 mg intrauterine device (Mirena) omeprazole 20 mg capsule,delayed 20 mg PO DAILY #30 cap 01/06/21 01/06/21 Rx release ondansetron HCl 4 mg tablet 4 mg PO Q8 PRN 01/06/21 01/06/21 History oxycodone 5 mg tablet 5 mg PO Q4 PRN 01/06/21 01/06/21 History triamcinolone acetonide 0.1 % 1 applic TOPICAL BID #30 g 01/06/21 01/06/21 Rx topical cream Past Med/Surg History Medical History (Updated 01/07/21 @ 05:34 by Guy Cross MD) History of anemia History of chlamydia infection History of hemorrhage History of induced hypertension Surgical History No pertinent past surgical history Family History Mother Hypothyroidism Father Cardiac disorder Myocardial infarction Hypertension Other No pertinent family history Denies family history of Ovarian cancer Breast cancer Colorectal cancer Social History (Updated 09/09/20 @ 11:32 by Madisyn Oleary MA) Smoking Status: Never smoker Age Quit Using Tobacco: 22; Second Hand Exposure: No; Hx Alcohol Use: No Hx Substance Use: No Preferred Language: Peruvian Communication Ability: Effective 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 Beliefs That Will Affect Care: None marital status: Single Current Living Situation: Family current occupational status: employed How many Children do You have: 2 Feels Safe at Home: Yes Childhood Exposure to Second-Hand Smoke: No Dental Care, Regularly: Yes Assistive Devices: None Review of Systems Review of Systems: The patient denies chest pain, palpitations, shortness of breath, dyspnea on exertion, cough, lower extremity swelling, sore throat, fevers, chills, sweats, vomiting, diarrhea , constipation, blood in urine or stool, dysuria, urinary frequency or urgency, memory loss, loss of consciousness, rash, abnormal bruising or bleeding, imbalance, focal weakness, numbness or tingling in arms or legs, generalized arthralgias or myalgias, back or neck pain, or night sweats. The review of systems is otherwise negative other than for that already noted above, and at least 10 systems have been reviewed. Physical Exam Physical Exam: The patient is awake, alert and oriented 3, well developed and well nourished, normocephalic and atraumatic, lying in bed and in no acute distress. HEENT--PERRL, EOMI, mucous membranes and oropharynx dry. Neck--supple. No JVD. No bruits. Thyroid normal, trachea midline, no adenopathy. Heart--normal S1 and S2. No murmurs, rubs or gallops. Lungs--clear bilaterally, no respiratory distress, no accessory muscle use. Abdomen--normal bowel sounds and soft. Nontender. Nondistended. Obese. Extremities--no cyanosis or clubbing. No edema. Dermatologic--normal skin turgor, normal color, no abnormal lymph nodes, no rash. Neurologic--cranial nerves II through XII grossly intact. Rheumatologic--limited exam due to abdominal pain and fatigue Psychiatric--normal affect. Results & Data Results & Data ([facility]) Vital Signs (Past 12 Hours) Vital Signs Temp Pulse Pulse Resp BP BP Pulse Ox 01/07/21 00:51 86 20 97/77 L 98 01/06/21 22:17 98.4 F 91 H 20 131/98 100 Laboratory Results Laboratory Results WBC 13.22 K/uL (4.8-10.8) H 01/06/21 22:34 RBC 4.74 M/uL (4.2-5.4) 01/06/21 22:34 Hgb 14.4 g/dL (12.0-16.0) 01/06/21 22:34 Hct 40.8 % (37-47) 01/06/21 22:34 MCV 86.1 fL (80-100) 01/06/21 22:34 MCH 30.4 pg (25-34) 01/06/21 22:34 MCHC 35.3 g/dL (32-36) 01/06/21 22:34 RDW Std Deviation 38.5 fL (36.4-46.3) 01/06/21 22:34 RDW Coeff of Paz 12.3 % (11.5-14.5) 01/06/21 22:34 Plt Count 510 K/uL (130-400) H 01/06/21 22:34 MPV 10.5 fL (7.4-10.4) H 01/06/21 22:34 Immature Gran % (Auto) 0.5 % 01/06/21 22:34 Neut % (Auto) 66.7 % 01/06/21 22:34 Lymph % (Auto) 24.2 % 01/06/21 22:34 Gonzales % (Auto) 5.1 % 01/06/21 22:34 Eos % (Auto) 3.0 % 01/06/21 22:34 Baso % (Auto) 0.5 % 01/06/21 22:34 Neut # (Auto) 8.83 K/uL (1.4-6.5) H 01/06/21 22:34 Lymph # (Auto) 3.20 K/uL (1.2-3.4) 01/06/21 22:34 Gonzales # (Auto) 0.67 K/uL (0.11-0.59) H 01/06/21 22:34 Eos # (Auto) 0.39 K/uL (0-0.5) 01/06/21 22:34 Baso # (Auto) 0.07 K/uL (0-0.2) 01/06/21 22:34 Immature Gran # (Auto) 0.06 K/uL (0.00-0.02) H 01/06/21 22:34 Sodium 129 mmol/L (136-145) L 01/06/21 22:34 Potassium 3.9 mmol/L (3.5-5.1) 01/06/21 22:34 Chloride 96 mmol/L (98-107) L 01/06/21 22:34 Carbon Dioxide 23 mmol/L (21-32) 01/06/21 22:34 Anion Gap 10.0 (3-11) 01/06/21 22:34 BUN 17 mg/dl (7-18) 01/06/21 22:34 Creatinine 1.46 mg/dl (0.6-1.2) H 01/06/21 22:34 Est Cr Clr Drug Dosing 71.3 ml/min 01/06/21 22:34 Est GFR ( Amer) 57.4 ml/min 01/06/21 22:34 Est GFR (Non-Af Amer) 49.5 ml/min 01/06/21 22:34 BUN/Creatinine Ratio 11.9 (10-20) 01/06/21 22:34 Glucose 534 mg/dl (70-99) H* 01/06/21 22:34 POC Glucose 234 mg/dl (70-99) H 01/07/21 02:17 Calcium 10.0 mg/dl (8.5-10.1) 01/06/21 22:34 Total Bilirubin 0.6 mg/dl (0.2-1) 01/06/21 22:34 AST 24 U/L (15-37) 01/06/21 22:34 ALT 45 U/L (12-78) 01/06/21 22:34 Alkaline Phosphatase 123 U/L (45-117) H 01/06/21 22:34 Total Protein 8.6 gm/dl (6.4-8.2) H 01/06/21 22:34 Albumin 4.1 gm/dl (3.4-5.0) 01/06/21 22:34 Globulin 4.5 gm/dl (2.5-4.0) H 01/06/21 22:34 Albumin/Globulin Ratio 0.9 (0.9-2) 01/06/21 22:34 Triglycerides 509 mg/dl (0-150) H 01/06/21 22:34 Cholesterol 173 mg/dl (0-200) 01/06/21 22:34 LDL Cholesterol, Calc mg/dl 01/06/21 22:34 VLDL Cholesterol, Calc mg/dl 01/06/21 22:34 HDL Cholesterol 27 mg/dl 01/06/21 22:34 Cholesterol/HDL Ratio 6 01/06/21 22:34 Lipase 1621 U/L (73-393) H 01/06/21 22:34 Beta-Hydroxybutyric Acd 7.81 mg/dl (0.2-2.81) H 01/06/21 22:34 HCG, Qual Negative (Negative) 01/06/21 22:34 Urine Color Yellow 01/07/21 00:12 Urine Appearance Cloudy (Clear) A 01/07/21 00:12 Urine pH 5.0 (4.5-7.5) 01/07/21 00:[address] 1.036 (1.000-1.030) H 01/07/21 00:12 Urine Protein 2+ (Negative) H 01/07/21 00:12 Urine Glucose (UA) 3+ (Negative) H 01/07/21 00:12 Urine Ketones 1+ (Negative) H 01/07/21 00:12 Urine Blood 2+ (Negative) H 01/07/21 00:12 Urine Nitrite Negative (Negative) 01/07/21 00:12 Urine Bilirubin Negative (Negative) 01/07/21 00:12 Urine Urobilinogen Negative (Negative) 01/07/21 00:12 Ur Leukocyte Esterase Negative (Negative) 01/07/21 00:12 Urine WBC (Auto) >30 /hpf (0-5) H 01/07/21 00:12 Urine RBC (Auto) 0-4 /hpf (0-4) 01/07/21 00:12 U Hyaline Cast (Auto) 1-5 /lpf (0-5) 01/07/21 00:12 U Epithel Cells (Auto) >30 /lpf (0-5) H 01/07/21 00:12 Urine Bacteria (Auto) 2+ (Negative) H 01/07/21 00:12 COVID-19 Eval Order Covid19 at [facility] 01/07/21 00:54 SARS-CoV-2 (PCR) NEGATIVE (Negative) 01/07/21 00:54 Diagnostic Findings [facility] Patient: FELIX SIERRA (Female) : 89 Status: ER Date: 01/07/21 00:49 Room #: History: abdomainal pain, history of pancreatitis Slices: [phone] Priors: Tech: Liza Coley @ [phone] Exams: CT ABDOMEN & PELVIS With Contrast Contrast: IV Amt: Optiray 320 93 cc Accession Numbers: [id number] Referring Physician: JAMSHID RUTH Preliminary Findings Only See Final Report For Complete Findings CT ABDOMEN & PELVIS With Contrast: Comparison: CT abdomen and pelvis 09/08/12. Peripancreatic fat stranding consistent with acute pancreatitis. Correlate with serum lipase. No parenchymal necrosis or organized peripancreatic collections. Liver, color, spleen, adrenal glands are unremarkable. No hydronephrosis. Probable subcentimeter cortical cyst right kidney, too small to characterize. Normal appendix. No bowel obstruction. IUD in the uterus. Normal urinary bladder. No acute osseous findings. Radiologist: Giles Rubio M.D. Study ready at 00:50 and initial results transmitted at 00:54 *This report constitutes a preliminary interpretation only. Non-acute findings felt to be unrelated to the clinical presentation may not be discussed in this report. The study will be interpreted and a final report will be generated by the local Radiologist the following shift. To reach the hospital radiology department call [phone]. If a discrepancy is found between the preliminary and final interpretations of this study, please notify us via our Client Portal at [email or web address] under QA [email or web address].You can also fax this report with a description of the discrepancy, or include the final report, to our daytime fax number [phone].If faxing, please indicate the severity of discrepancy using one of the following categories: [ ] 1 - Agree/Informational [ ] 2 - Unlikely to Affect Management [ ] 3 - Possible Eventual Change of Management [ ] 4 - Probable Immediate Change of Management For all other patient related information, please fax us at [phone]. [id number] Code Status & VTE Plan Code Status Full code VTE Prophylaxis Plan VTE Prophylaxis will be ordered: Yes PG Care Time/CCT Total # of Minutes Spent Total Time Spent with Patient: Total time spent is greater than 50% in coordination of care (as documented) at patient's floor/unit and/or counseling patient: Coding Level of Care Code 12103 Initial Inpt Care Lvl 3 Diagnoses Acute pancreatitis K85.80 Acute pancreatitis complication: unspecified Pancreatitis type: other Acute hyperglycemia R73.9 Acute dehydration E86.0 Gastritis K29.70 (1) Acute pancreatitis Acute pancreatitis complication: unspecified Pancreatitis type: other Qualified Code(s): K85.80 - Other acute pancreatitis without necrosis or infection
[2021-01-07 06:36] LABS: Thyroid Stimulating Hormone 3.7 uIu/ml (0.300-4.500)
--- NOTE | 2021-01-07 07:45 | CT Scan Report ---
ABDOMEN AND PELVIS CT WITH IV CONTRAST CT DOSE: 979.68 mGy.cm HISTORY: Mid abdominal pain. pancreatitis TECHNIQUE: Multiaxial CT images of the abdomen and pelvis were performed following the use of intrave nous contrast. A dose lowering technique was utilized adhering to the principles of ALARA. COMPARISON STUDY: Abdomen and pelvis CT 10/25/2018. FINDINGS: The lung bases are clear. No pneumoperitoneum. No pneumatosis. No fractures within the visu alized osseous structures. No hepatic or splenic masses. The main portal vein is patent. Mild diffuse peripancreatic inflammatory change/edema is noted. This is consistent with acute pancreatitis. No ev idence for pancreatic necrosis or peripancreatic fluid collections at this time. No retroperitoneal l ymphadenopathy. Normal caliber abdominal aorta. A 6 mm hypodense lesion within the right kidney and a 7 mm exophytic hypodensity within the left kidney. These are technically too small to characterize b ut statistically represent cysts. No hydronephrosis. No pelvic free fluid. The bladder is decompresse d. There is an intrauterine device in good position. A 2.5 cm right ovarian cyst. Normal left ovary. No ascites identified. No bowel wall thickening or obstruction. Normal appendix. IMPRESSION: Mild peripancreatic inflammatory change consistent with acute pancreatitis. ACT 112: Negative or not required by law. Electronically signed by: Santos Pop M.D. 01/07/2021 7:43 AM
[2021-01-07] MEDS ORDERED: GLUCAGON FOR INJ 1 MG VIAL SQ PRN (10:17)
[2021-01-07] MEDS ORDERED: GLUCOSE 40% GEL 15 GM TUBE PO PRN (10:17)
[2021-01-07] MEDS ORDERED: CARBOHYDRATES FOR HYPOGLYCEMIA PO PRN (10:17)
[2021-01-07] MEDS ORDERED: GLUCOSE 10 TABS/TUBE PO PRN (10:17)
[2021-01-07] MEDS ORDERED: DEXTROSE 50% 50 ML SYRINGE IV PRN (10:17)
[2021-01-07] MEDS ORDERED: ONDANSETRON INJ 2 MG/ML 2 ML VIAL IV PRN (10:17)
[2021-01-07] MEDS ORDERED: NSS + 20MEQ KCL 20 MEQ/1,000 ML BAG IV SCH (11:00)
[2021-01-07] MEDS: INSULIN ASPART 100 UNITS/ML 3 ML PEN SC SCH ×4 (12:31→21:00)
[2021-01-07 13:17] LABS: Basophils # (auto) 0.05 K/uL (0-0.2); Basophils % (auto) 0.5 %; Eosinophils # (auto) 0.33 K/uL (0-0.5); Eosinophils % (auto) 3.2 %; Hematocrit (blood only) 36.8 % (37-47); Hemoglobin 12.9 g/dL (12.0-16.0); Immature Granulocytes # (auto) 0.05 K/uL (0.00-0.02); Immature Granulocytes % (auto) 0.5 %; Lymphocytes # (auto) 2.47 K/uL (1.2-3.4); Lymphocytes % (auto) 24.3 %; Mean Corpuscular Hemoglobin 29.9 pg (25-34); Mean Corpuscular Volume 85.2 fL (80-100); Mean Platelet Volume 10.3 fL (7.4-10.4); Monocytes # (auto) 0.41 K/uL (0.11-0.59); Neutrophils # (auto) 6.85 K/uL (1.4-6.5); Neutrophils % (auto) 67.5 %; Platelet Count 409 K/uL (130-400); RDW Coefficient of Variation 12.5 % (11.5-14.5); RDW Standard Deviation 38.7 fL (36.4-46.3); Red Blood Count 4.32 M/uL (4.2-5.4); White Blood Count 10.16 K/uL (4.8-10.8)
[2021-01-07 13:28] LABS: Mean Corpuscular Hgb Conc 35.1 g/dL (32-36)
[2021-01-07 13:29] LABS: Estimated Average Glucose 286 mg/dl; Hemoglobin A1C 11.6 % (4.5-5.6)
[2021-01-07 13:44] LABS: Albumin Globulin Ratio 0.8 (0.9-2); BUN Creatinine Ratio 11.5 (10-20); Bilirubin,Total 0.5 mg/dl (0.2-1); Calcium 8.8 mg/dl (8.5-10.1); Creatinine Clr Calc Pharmacy 111.9 ml/min; Est GFR (Non-African American) 85.4 ml/min; Globulin 3.9 gm/dl (2.5-4.0); Magnesium 1.6 mg/dl (1.8-2.4); Potassium 3.9 mmol/L (3.5-5.1); Total Protein 6.9 gm/dl (6.4-8.2)
[2021-01-07 13:56] LABS: Beta-Hydroxybutyrate 6.93 mg/dl (0.2-2.81)
[2021-01-07] MEDS ORDERED: INSULIN ASPART PER UNIT 10 UNITS in SYRINGE 0 ML SC STA (14:06)
[2021-01-07] MEDS ORDERED: INSULIN ASPART 100 UNITS/ML 3 ML PEN SC ONE (14:15)
[2021-01-07] MEDS ORDERED: INSULIN GLARGINE SOLOSTAR 100 UNITS/ML 3 ML PEN SC ONE (15:00)
--- NOTE | 2021-01-07 16:39 | Communication Note ---
Date of Service: January 07, 2021 Patient seen on daily rounds today. She is a 25-year-old white female who is overweight. She has no significant past medical history. She presented to the ED due to abnormal labs. Hospitalized at [place] 2 weeks ago for hyperglycemia and pancreatitis. Had a right upper quadrant ultrasound that was within normal limits. Discharged home. Hyperglycemia not really addressed in terms of long-term management. Seen by PCP who did blood work which yielded a blood sugar of 534. Sodium was 129. Creatinine was slightly elevated at 1.4. Lipase was still elevated at 1621. Her anion gap was closed at 10.0. Serum bicarb was normal at 23. She denies alcohol use. Again right upper quadrant ultrasound done 2 weeks ago (results reviewed and negative). Triglyceride level elevated at 509 but not high enough to cause pancreatitis. In the ED, patient received IV insulin and aggressive IV hydration and subsequently admitted for further evaluation and care. Current blood sugars are between 2 and 300. She is tolerating a full liquid diet. Denies any abdominal pain. White count was slightly elevated which has since normalized. Her sodium level has normalized. Renal function has improved. Ultimately, patient is significantly overwhelmed with the new diagnosis of diabetes. She denies a family history of diabetes mellitus. She has 2 children (ages 4 and 2). She denies a history of gestational diabetes. Upon further prompting, she admits to feeling overly fatigued for months. Has chalked this up to having 2 young children and working full-time. She did reports polydipsia, polyuria, polyphagia along with nausea. Denies any vomiting. Has not recently been ill. Denies fevers, chills, respiratory symptoms. Her Covid test was negative. Is also complaining of a rash of her abdomen and some vaginal itching/burning. BP: 120/77. Pulse: 68. Respirations: 18. Temp: 36.6 C. O2 saturation: 97% on room air General: Resting comfortably in her hospital bed. Very tearful. NAD. HEENT: Head is AT/NC buccal mucosa is moist and pink Neck: No JVD. Negative hepatojugular reflex Cardiac: RRR without M/G/R Lungs: CTA without W/R/R Abdomen: Normoactive X4. Soft and nontender in all quadrants. No evidence of [place] or Lozano Crews sign. Extremities: No peripheral clubbing cyanosis or edema Neuro: A&O X4 cranial nerves II through XII are grossly intact no focal neuro deficits Skin: Mild intertrigo Psych: Appropriate affect pleasant and cooperative A/P: 1. PancreatitisI suspect this is due to underlying/newly diagnosed diabetes mellitus 2. Newly diagnosed diabetes mellitus with hyperglycemia 3. Leukocytosislikely reactive as normalized with IV hydration 4. Pseudohyponatremia from hyperglycemia 5. Mild AKIresolved 6. Hypertriglyceridemia 7. Vaginal candidiasis and intertrigo * Patient with hyperglycemia but not DKA. Also, blood sugar is elevated does not meet criteria for hyperosmolar nonketotic hyperglycemia. * A1c since obtained and elevated at 11% * Have ordered a C-peptide. In addition, insulin antibody, islet cell antibody, and anti-JOAQUINA 65 antibodies obtained to help differentiate type 2 diabetes versus adult onset type I * Patient on sliding scale. I have tightened coverage and added basal insulin. * Metformin likely will be beneficial for this patient. I suspect she has a component of insulin resistance given her habitus; however, will hold for now as antibody testing done and pending. In addition, she had a CT scan with contrast thus Metformin needs held for 48 hours * I suspect her pancreatitis is secondary to this ongoing and uncontrolled diabetes mellitus; however, will obtain an MRCP to ensure patient does not have sludge in biliary tree. Her LFTs are normal thus suspicion is low but with recurrent pancreatitis, MRCP is warranted * Lengthy discussion with patient regarding the importance of good glycemic control and unfortunate complications of uncontrolled diabetes mellitus. Patient will also be meeting with the breastfeeding educator. This is much appreciated. * Renal function, white blood cell count, and sodium all normalized with IV hydration * Add TriCor for hypertriglyceridemia. Not high enough to be causing her pancreatitis but high nonetheless and with her underlying diagnosis of diabetesneed to modify all risk factors cardiac disease * Diflucan and Lotrisone for intertrigo and vaginal candidiasis * Follow-up labs for tomorrow * See full H&P as outlined
[2021-01-07] MEDS ORDERED: SODIUM CHLORIDE 0.9% 1000ML 1,000 ML IV SCH (16:45)
[2021-01-07] MEDS ORDERED: FLUCONAZOLE 50 MG TAB PO SCH (17:00)
[2021-01-07] MEDS: ACETAMINOPHEN 325 MG TAB PO PRN ×2 (17:14→22:32)
[2021-01-07] MEDS ORDERED: Nursing to Pharmacy Communication SCH (17:15)
[2021-01-07] MEDS ORDERED: INSULIN GLARGINE SOLOSTAR 100 UNITS/ML 3 ML PEN SC SCH (21:00)
[2021-01-07] MEDS: CLOTRIMAZOLE/BETAMETHASONE CR 15 GM TUBE EXT SCH (22:35)
[2021-01-08] MEDS: ACETAMINOPHEN 325 MG TAB PO PRN (03:50)
[2021-01-08 07:54] LABS: Basophils # (auto) 0.05 K/uL (0-0.2); Basophils % (auto) 0.5 %; Eosinophils % (auto) 3.2 %; Hematocrit (blood only) 37.1 % (37-47); Hemoglobin 12.7 g/dL (12.0-16.0); Immature Granulocytes # (auto) 0.05 K/uL (0.00-0.02); Immature Granulocytes % (auto) 0.5 %; Lymphocytes # (auto) 2.97 K/uL (1.2-3.4); Mean Corpuscular Hemoglobin 30.2 pg (25-34); Mean Corpuscular Hgb Conc 34.2 g/dL (32-36); Mean Corpuscular Volume 88.1 fL (80-100); Mean Platelet Volume 10.2 fL (7.4-10.4); Monocytes # (auto) 0.34 K/uL (0.11-0.59); Monocytes % (auto) 3.7 %; Neutrophils # (auto) 5.56 K/uL (1.4-6.5); Neutrophils % (auto) 60.1 %; Platelet Count 356 K/uL (130-400); RDW Coefficient of Variation 12.8 % (11.5-14.5); RDW Standard Deviation 40.9 fL (36.4-46.3); Red Blood Count 4.21 M/uL (4.2-5.4); White Blood Count 9.27 K/uL (4.8-10.8)
[2021-01-08 08:20] LABS: BUN Creatinine Ratio 10.4 (10-20); Calcium 9.1 mg/dl (8.5-10.1); Creatinine Clr Calc Pharmacy 124.4 ml/min; Est GFR (Non-African American) 96.6 ml/min; Potassium 3.9 mmol/L (3.5-5.1)
[2021-01-08] MEDS ORDERED: INSULIN GLARGINE SOLOSTAR 100 UNITS/ML 3 ML PEN SC SCH (09:00)
[2021-01-08] MEDS: FENOFIBRATE NANOCRYSTALLIZED 145 MG TABLET PO SCH (09:13)
[2021-01-08] MEDS: CLOTRIMAZOLE/BETAMETHASONE CR 15 GM TUBE EXT SCH ×2 (09:13→21:03)
[2021-01-08] MEDS: INSULIN ASPART 100 UNITS/ML 3 ML PEN SC SCH ×4 (09:14→20:48)
--- NOTE | 2021-01-08 09:48 | Magnetic Resonance Report ---
MR MRCP HISTORY: Mid abdominal pain. pancreatitis TECHNIQUE: MRCP of the abdomen was performed without contrast according to standard departmental prot ocol. COMPARISON STUDY: Abdomen and pelvis CT 01/07/2021. FINDINGS: The lung bases are clear. The liver, spleen, adrenal glands, and gallbladder are unremarkab le. No gallstones identified. Small bilateral renal cysts are again noted with the largest on the lef t measuring 7 mm. No hydronephrosis. The main portal vein appears patent. Normal caliber abdominal ao rta. No retroperitoneal lymphadenopathy. Mild peripancreatic edema consistent with the patient's know n history of acute pancreatitis. This is not significantly changed. No evidence for pancreatic necros is or. Pancreatic loculated fluid collections at this time. The common bile duct measures up to 3 mm in diameter. No filling defects within the common bile duct to suggest choledocholithiasis. No intrah epatic bile duct dilatation. The main pancreatic duct is not well visualized likely due to the edemat ous pancreas. No areas of pancreatic duct dilatation identified. IMPRESSION: 1. No significant change in the acute pancreatitis. 2. Normal caliber common bile duct. No filling defects within the common bile duct to suggest choledo cholithiasis. 3. Normal gallbladder. No gallstones. 4. The main pancreatic duct is not well visualized due to the edematous pancreas. No areas of pancrea tic duct dilatation identified. ACT 112: Negative or not required by law. Electronically signed by: Santos Pop M.D. 01/08/2021 9:47 AM
[2021-01-08] MEDS ORDERED: SODIUM CHLORIDE 0.9% 1000ML 1,000 ML IV SCH (10:15)
[2021-01-08] MEDS: INSULIN GLARGINE SOLOSTAR 100 UNITS/ML 3 ML PEN SC SCH ×2 (10:22→21:04)
[2021-01-08] MEDS ORDERED: MAGNESIUM SULFATE / D5W 1 GM/100 ML BAG IV ONE (10:30)
--- NOTE | 2021-01-08 14:06 | Hospitalist Progress Note ---
Date of Service January 08, 2021 Assessment & Plan (1) Acute pancreatitis: Plan: -Acute pancreatitis- -CT scan of abdomen and pelvis with contrast shows peripancreatic fat stranding consistent with acute pancreatitis -Lipase upon admission 1621--> down to 658 today -Likely associated with hyperglycemia and new onset of diabetes mellitus -Triglycerides mildly elevated at 509, not likely causal of pancreatitis. -MRCP done showing no evidence of biliary obstruction or filling defect. Again, suspect secondary to new diagnosis of diabetes mellitus with hyperglycemia -Pain improving but still persistent. Keep on full liquid diet today. Will subsequently advance as pain continues to improve. (2) Diabetes mellitus: Plan: -At this point, undifferentiated if adult onset type I versus type II. I s uspect type II as patient was not in DKA upon arrival; however, C-peptide, islet cell antibody, antigad 65 antibody, and insulin autoantibody obtained and pending -Blood sugars improving nicely. Blood sugar of 547 upon arrival. Over the past 24 hours, blood sugars: [phone] -By weight calculation, patient should be requiring anywhere between 25 and 34 units of basal insulin a day. She was started on 20 units given the fact that she is insulin manohar. Fasting blood sugar above goal. Will uptitrate basal insulin accordingly. Continue sliding scale. (3) ARPIT (acute kidney injury): Plan: -Resolved with IV hydration. Likely secondary to dehydration (4) Electrolyte abnormality: Plan: -Patient found to be hyponatremic upfront. Likely pseudohyponatremia from hyperglycemia. This is since corrected with IV hydration -Magnesium level low today. Will supplement. (5) Hypertriglyceridemia: Plan: -Triglycerides not at a level that would be causing pancreatitis; however, elevated nonetheless. -Given new diagnosis of diabetes mellitus and risk factors for coronary disease, she has been started on TriCor (6) Intertrigo: Plan: -Lotrisone cream ordered (7) Vaginal fátima: Plan: -diflucan 150mg q72h x 2 (8) Leukocytosis: Plan: - suspect reactive Plan: -- continue to monitor BS and correct with insulin -- slow in advancement in diet given persistent (but improved) pain -- Plan of care to be discussed with Dr. Fields. Further orders as warranted. Admission and Anticipated Discharge Date Admission Date: January 07, 2021 Subjective Patient seen on daily rounds today Overall, denies any nausea or abdominal pain "unless she pushes on her abdomen". She has not had any fevers or chills. Has been seen by the inclusion special educator and given lengthy information regarding importance of good glycemic control and how to inject insulin. A1c has come back elevated at 11.6. Work-up to differentiate adult onset type I versus type 2 diabetes mellitus has been initiated. Blood sugars improved but still above goal. Last evening blood sugar was 88. With slight up titration in diet, blood sugars today are in the low 200s. She is not feeling jittery/lightheaded/dizzy, nauseous, or anxious with these blood sugars. Nursing voices no complaints or concerns. Review of Systems Review of Systems: All systems reviewed and are unremarkable except as noted in HPI and below Denies fevers, chills, headache, nasal congestion, sore throat, cough, chest pain, shortness of breath, palpitations, orthopnea, PND, abdominal pain, nausea, vomiting, diarrhea, constipation, dysuria, hematuria, frequency, back pain, joint pain or swelling, easy bruising or bleeding, skin lesions or rashes. Physical Exam Physical Exam: General: Resting comfortably in her hospital bed. She does not appear ill or toxic. NAD. HEENT: Head is AT/NC buccal mucosa is moist and pink Neck: No JVD. Negative hepatojugular reflex Cardiac: RRR without M/G/R Lungs: CTA without W/R/R Abdomen: Normoactive X4. No guarding or rigidity. Still with mild left upper quadrant tenderness Extremities: No peripheral clubbing cyanosis or edema Neuro: A&O X4 cranial nerves II through XII are grossly intact no focal neuro deficits Skin: No obvious skin lesions or rashes Psych: Appropriate affect pleasant and cooperative Results & Data Results & Data ([facility]) Vital Signs (Past 12 Hours) Vital Signs Temp Pulse Pulse Resp BP Pulse Ox 01/08/21 11:17 36.7 C 67 16 108/67 97 01/08/21 07:38 36.8 C 65 18 104/72 99 01/08/21 07:20 58 L 01/08/21 04:00 36.6 C 66 18 102/69 98 Laboratory Results 01/08/21 07:32 01/08/21 07:32 Diagnostic Findings MRCP IMPRESSION: 1. No significant change in the acute pancreatitis. 2. Normal caliber common bile duct. No filling defects within the common bile duct to suggest choledocholithiasis. 3. Normal gallbladder. No gallstones. 4. The main pancreatic duct is not well visualized due to the edematous pancreas. No areas of pancreatic duct dilatation identified. PG Care Time/CCT Total # of Minutes Spent Total Time Spent with Patient: Total time spent is greater than 50% in coordina tion of care (as documented) at patient's floor/unit and/or counseling patient: [place] [address] Subseq Hosp Care Lvl 2 Patient Type Established History Expanded Problem Focused Exam Expanded Problem Focused Medical Decision Making Moderate Complexity Diagnoses Acute pancreatitis K85.80 Acute pancreatitis complication: unspecified Pancreatitis type: other Diabetes mellitus E11.9 ARPIT (acute kidney injury) N17.9 Electrolyte abnormality E87.8 Hypertriglyceridemia E78.1 Intertrigo L30.4 Vaginal fátima B37.3 Leukocytosis D72.829 (1) Acute pancreatitis Acute pancreatitis complication: unspecified Pancreatitis type: other Qualified Code(s): K85.80 - Other acute pancreatitis without necrosis or infection
[2021-01-09] MEDS: ACETAMINOPHEN 325 MG TAB PO PRN (03:17)
[2021-01-09] MEDS ORDERED: MAGNESIUM OXIDE 400 MG TAB PO SCH (09:00)
[2021-01-09] MEDS: CLOTRIMAZOLE/BETAMETHASONE CR 15 GM TUBE EXT SCH (09:02)
[2021-01-09] MEDS: FENOFIBRATE NANOCRYSTALLIZED 145 MG TABLET PO SCH (09:03)
[2021-01-09] MEDS: INSULIN ASPART 100 UNITS/ML 3 ML PEN SC SCH ×3 (09:32→18:31)
[2021-01-09] MEDS: INSULIN GLARGINE SOLOSTAR 100 UNITS/ML 3 ML PEN SC SCH (09:34)
[2021-01-09 10:20] LABS: Basophils # (auto) 0.06 K/uL (0-0.2); Basophils % (auto) 0.6 %; Eosinophils % (auto) 3.1 %; Hematocrit (blood only) 39.6 % (37-47); Hemoglobin 13.4 g/dL (12.0-16.0); Immature Granulocytes # (auto) 0.04 K/uL (0.00-0.02); Immature Granulocytes % (auto) 0.4 %; Lymphocytes # (auto) 2.84 K/uL (1.2-3.4); Lymphocytes % (auto) 29.2 %; Mean Corpuscular Hgb Conc 33.8 g/dL (32-36); Mean Corpuscular Volume 88.8 fL (80-100); Mean Platelet Volume 10.8 fL (7.4-10.4); Monocytes # (auto) 0.58 K/uL (0.11-0.59); Neutrophils # (auto) 5.89 K/uL (1.4-6.5); Neutrophils % (auto) 60.7 %; Platelet Count 397 K/uL (130-400); RDW Standard Deviation 41.6 fL (36.4-46.3); Red Blood Count 4.46 M/uL (4.2-5.4); White Blood Count 9.71 K/uL (4.8-10.8)
[2021-01-09 10:37] LABS: Magnesium 2.1 mg/dl (1.8-2.4)
[2021-01-09] MEDS ORDERED: INSULIN GLARGINE SOLOSTAR 100 UNITS/ML 3 ML PEN SC STA (12:31)
--- NOTE | 2021-01-09 18:25 | Discharge Summary ---
Date of Service January 09, 2021 Admission HPI Per Admitting Provider The patient is a 25-year-old female with a past medical history including gastritis, pancreatitis, IUD, and obesity. She was most recently admitted to [facility] 2 weeks ago, at which time she was diagnosed with pancreatitis and hyperglycemia. She reportedly was admitted there for 6 days, and discharged a few days ago. Since that time, her symptoms have worsened, and has been sent to the ED by her PCP for further assessment evaluation. Principal Diagnosis 1. Newly diagnosed diabetes mellitus with hyperglycemia 2. Acute pancreatitislikely secondary to #1 3. AKIresolved 4. Electrolyte abnormalities (pseudohyponatremia, hypomagnesemia) Discharge Exam General: Resting comfortably in her hospital bed. She does not appear ill or toxic. NAD. HEENT: Head is AT/NC buccal mucosa is moist and pink Neck: No JVD. Negative hepatojugular reflex Cardiac: RRR without M/G/R Lungs: CTA without W/R/R Abdomen: Normoactive X4. No guarding or rigidity. Still with mild left upper quadrant tenderness Extremities: No peripheral clubbing cyanosis or edema Neuro: A&O X4 cranial nerves II through XII are grossly intact no focal neuro deficits Skin: No obvious skin lesions or rashes Psych: Appropriate affect pleasant and cooperative Discharge Data Allergies Allergy/AdvReac Type Severity Reaction Status Date / Time nickel Allergy RASH Verified 01/06/21 10:23 Pertussis Vaccines Allergy Seizure Verified 01/06/21 10:23 Consultations 01/07/21 00:59 ED Decision to Admit Stat Ordered Studies 01/06/21 23:25 CT abd pelvis IV con only Urgent IMPRESSION: Mild peripancreatic inflammatory change consistent with acute pancreatitis. 01/07/21 12:18 MR MRCP Routine IMPRESSION: 1. No significant change in the acute pancreatitis. 2. Normal caliber common bile duct. No filling defects within the common bile duct to suggest choledocholithiasis. 3. Normal gallbladder. No gallstones. 4. The main pancreatic duct is not well visualized due to the edematous pancreas. No areas of pancreatic duct dilatation identified. Diabetes Follow up Diabetes Follow-up Needed for HgbA1c >9%,Newly Diagnosed Diabetes Hospital Course (1) Acute pancreatitis: -Acute pancreatitis- -CT scan of abdomen and pelvis with contrast shows peripancreatic fat stranding consistent with acute pancreatitis -Lipase upon admission 1621--> down to 658 today--> 647 -Likely associated with hyperglycemia and new onset of diabetes mellitus -Triglycerides mildly elevated at 509, not likely causal of pancreatitis. -MRCP done showing no evidence of biliary obstruction or filling defect. Again, suspect secondary to new diagnosis of diabetes mellitus with hyperglycemia -Patient was treated with an n.p.o. diet and IV hydration. Pain improved as lipase level and down trended. Started on a clear liquid diet that was advanced as tolerated to low-fat. -When seen on 01/09, tolerating oral intake. She has no further abdominal pain, nausea or vomiting. Lipase level still slightly elevated but symptoms resolved -TSH normal at 6 Patient to follow-up with PCP within 7 to 10 days. Encouraged to bring glucometer with her to this appointment --Also explained to patient that she was prescribed a One Touch glucometer as covered by insurance; however, 10 strips tend to be expensive. If so, she can coordinate with pharmacist and perhaps purchase a cheaper glucometer that have much cheaper test strips (2) Diabetes mellitus: -At this point, undifferentiated if adult onset type I versus type II. I suspect type II as patient was not in DKA upon arrival; however, C-peptide, islet cell antibody, antigad 65 antibody, and insulin autoantibody obtained and pending -Blood sugars improving nicely. Blood sugar of 547 upon arrival. Fasting blood sugar was 147 this morning. -Mealtime blood sugars are being monitored and she has received/required very little analog for coverage -Patient also will be sent home with Metformin 500 mg twice daily. Recommend up titration to 1000 g twice a day as tolerated. Was not given in the ED given contrast dye that was used for CT scan and risk for contrast nephropathy -Patient to be discharged with Lantus. Will use a.m. dosing as opposed to p.m. dosing given her lifestyle and convenience. To administer 20 units every morning. Increase by 2 units every 3 days with goal 2-hour postprandial (after largest meal) of 180 and fasting blood glucose of less than 120. -Lengthy discussion with patient regarding importance of good glycemic control -She has been seen by the senior analytical chemist -Provided lengthy education regarding how to monitor blood sugars, how to use a glucometer and check her blood sugars, and how to administer insulin -She is overwhelmed but voices understanding (3) ARPIT (acute kidney injury): -Resolved with IV hydration. Likely secondary to dehydration (4) Electrolyte abnormality: -Patient found to be hyponatremic upfront. Likely pseudohyponatremia from hyperglycemia. corrected with IV hydration -Magnesium level low at 1.6. Was supplemented (5) Hypertriglyceridemia: -Triglycerides not at a level that would be causing pancreatitis; however, elevated nonetheless. -Given new diagnosis of diabetes mellitus and risk factors for coronary disease, she has been started on TriCor (6) Intertrigo: -Lotrisone cream ordered and to continue upon discharge (7) Vaginal fátima: -diflucan 150mg q72h x 2 (first dose given in the ED) -Candidiasis likely in the setting of hyperglycemia (8) Leukocytosis: - suspect reactiveresolved with IV hydration Discharge recommendations: 1. Follow-up on glycemic control and up titration of insulin if needed 2. Follow-up on antibody levels drawn to help differentiate adult onset type I versus type II. Clinically suspect type II 3. Recommend follow-up labs (BMP in 1 month given addition of Metforminto assess renal function). 4. Follow-up A1c in 3 months 5. Recommend referral to pneumatic tool repairer 6. If patient with continued pancreatitis/GI issues with improvement in her blood sugars, would advise referral to GI for EUS/ERCP 7. Repeat lipid panel in 1 to 3 months Total Time Total Time Spent Total Time Spent (In Minutes): 90 minutes including lengthy discussion with patient regarding the importance of good glycemic control, education on how to use insulin and when to check blood sugars in addition to titration of insulin, coordination of care, discussion with attending, and documentation. Discharge Plan Discharge Items Patient Disposition: Home - Self-Care Reason For Visit: HYPERGLYCEMIA, NEW ONSET DM, ACUTE PANCREATITIS Discharge Diagnosis: 1. Newly diagnosed Diabetes Mellitus 2. Pancreatitis- presumed secondary to #1 Activity: Resume your previous activity Non-emergency contact: Primary Care Provider Call non-emergency contact if: you have any medication questions and your symptoms worsen Follow-up/Referrals: Jamshid Canada DO [Primary Care Provider] - Diet: Carb Consistent or DM2 and Low Fat Addtl Attending Provider Instructions: - you have been hospitalized with elevated blood glucose levels-- secondary to newly diagnosed diabetes - This is likely the cause of your pancreatitis as well ("inflammation of the pancreas") - We did do an MRCP of the biliary system to make sure there wasn't any obvious slugde or filling defect in the ducts. There was not. - If you continue to have abdominal pain/elevated lipse (despite control of your blood sugars), would consider referral to GI for ? ERCP/Endoscopic ultrasound (this would need arranged by PCP) - you are being sent home with Insulin (lantus) which you are to inject once a day. Given your busy lifestyle-- we are going to continue you on it ONCE a day BUT GIVE IT IN THE MORNING. Typically we dose this medication as night but for you, having young children and the fact that you done typically eat much for breakfast, YOU WILL DOSE YOURSELF IN THE MORNING. - Starting tomorrow, Give 20 Units of lantus TOTAL. - you should check your blood sugars 2 hours AFTER your largest meal and the target blood sugar with this reading is <180. Increased your Lantus by 2 units every 3 days until you reach this goal or you hit 30 units (further titration per PCP). - YOU SHOULD NOT MAKE ANY CHANGES IN YOUR INSULIN DOSE FOR AT LEAST ANOTHER 3 DAYS - In addition, you should check your fasting blood sugars every day (for now). Target range is 80-120 - if you feel anxious, dizzy, sweaty, nausea, shaky-- check your blood sugars (as they might be low (<70). If your sugars are low-- use the "15 rule": eat 15 grams of carbs and recheck you blood sugars in 15 min - keep a log of your blood sugar readings (some monitors can be linked to your phone via bluetooth). Bring this log and your glucometer to your follow up to see your PCP - You are also being started on Metformin 500mg twice a day. This may cause diarrhea. Ideally, would increase this over time (As you become tolerant to this) to 1000mg twice a day. Discuss titration with your PCP - you should have FU labs-- at discretion of PCP - be sure that when you are checking your blood sugars, you clean off the finger with alcohol first (As to avoid a false "high"). Use the side of the tip of your finger as this tends to hurt a little less. Rotate your fingers. - Also, before injecting the insulin- clean skin site with alcohol wipe. let dry then inject. Count to "3" before removal of insulin pen as discussed. - You want to watch your intake of carbohydrates (45 TOTAL grams of carbs per meal) and a total of 45 (total) for snacks). It is important to follow this carb consistent diet. ALSO PAIR A CARB WITH A PROTEIN to avoid the spike. - Last, you have been started on Tricor to help with your elevated triglycerides. This can contribute to pancreatitis (although I do not believe that your number was high even) but it is elevated [id number] and can increase your risk of cardiac disease. Especially with the newly diagnosed diabetes. -- follow up with your PCP: 7-10 days -- return to the ED for new or worsening symptoms Pending Studies at Discharge: Yes Studies:: Islet Cell Antibody, Anti-JOAQUINA 65 antibody, Insulin Antibody, C-peptide Stand-Alone Forms: [facility], Smoking Cessation Medications and DC Order Prescriptions: New magnesium oxide 400 mg (241.3 mg magnesium) Tablet 400 mg PO QAM Qty: 7 RF: 0 fluconazole 50 mg Tablet 150 mg PO ONCE Qty: 30 RF: 0 fenofibrate nanocrystallized 145 mg Tablet 145 mg PO QAM Qty: 30 RF: 0 Lantus Solostar U-100 Insulin 100 unit/mL (3 mL) Insulin Pen 20 unit SC QAM Qty: 15 RF: 0 clotrimazole-betamethasone 1-0.05 % Cream 1 applic EXT BID Qty: 45 RF: 0 (DME) OneTouch Verio test strips Strip See Rx Instructions .Route Qty: 100 RF: 0 (DME) lancets [OneTouch Delica Lancets] 33 gauge misc See Rx Instructions .Route Qty: 100 RF: 0 (DME) pen needle, diabetic [BD Ultra-Fine Micro Pen Needle] 32 gauge x 1/4" needle See Rx Instructions .Route Qty: 50 RF: 0 alcohol swabs [Alcohol Pads] Pads, Medicated 1 pad topical DIRECTED Qty: 100 RF: 0 metformin 500 mg tablet 500 mg PO BID Qty: 60 RF: 0 Continued omeprazole 20 mg capsule,delayed release(DR/EC) 20 mg PO DAILY Qty: 30 RF: 2 triamcinolone acetonide 0.1 % cream 1 applic topical BID Qty: 30 RF: 1 Mirena 20 mcg/24 hours (5 yrs) 52 mg intrauterine device 20 mcg IU CONTINOUS RF: 0 ondansetron HCl 4 mg tablet 4 mg PO Q8 PRN (Reason: Nausea And Vomiting) RF: 0 Discontinued oxycodone 5 mg tablet 5 mg PO Q4 PRN (Reason: Pain, Severe) RF: 0 Discharge Orders: Discharge Order (Routine); Ordered 01/09/21 Ordered By: Minal Dudley/Other Patient Handouts: Hypoglycemia (Low Blood Sugar), Blood Sugar Monitoring and ..., Diabetes Care Ch Admission Data Admit Date/Time: 01/07/21 02:29 Attending Provider: Riley Fields Admit Provider: Guy Cross Primary Care Provider: Jamshid Canada Other Providers: Riley Fields ; Guy Cross Other Interventions: Discharge Summary Assessment (RN) Last Done: 01/09/21 18:32 Supervising Physician Co-Signing Physician Notes I supervised Minal Rodríguez PA-C on the care of this patient. I interviewed and examined the patient independently of her. The plan is as written in her note except for any following changes/exceptions: None Doing well today. Sugars controlled. No pain. Coding Level of Care Code Established Pt D/C DAY MANAGEMENT >30 MINS Patient Type Established Diagnoses Acute pancreatitis K85.80 Acute pancreatitis complication: unspecified Pancreatitis type: other Diabetes mellitus E11.9 ARPIT (acute kidney injury) N17.9 Electrolyte abnormality E87.8 Hypertriglyceridemia E78.1 Intertrigo L30.4 Vaginal fátima B37.3 Leukocytosis D72.829 Time Spent (min) 90
[2021-01-18 00:27] LABS: C-Peptide 1.45 ng/mL (0.80-3.85); Glutamic Acid Decarboxylase 65 <5 IU/mL (<5)
== END 2021-01-09 19:25 | disposition home or self-care (01) | DRG 637 ==
LOC: ED 22:13 → SUATTDRO 01-07 02:29 → 2N 01-07 02:29 → 3N 01-08 22:12
DX: E11.65 Type 2 diabetes mellitus with hyperglycemia; Z82.49 Family history of ischemic heart disease and other diseases of the circulatory system; K85.80 Other acute pancreatitis without necrosis or infection; E86.0 Dehydration; E66.9 Obesity, unspecified; N17.9 Acute kidney failure, unspecified; Z91.09 Other allergy status, other than to drugs and biological substances; B37.3 Candidiasis of vulva and vagina; Z88.7 Allergy status to serum and vaccine; Z87.891 Personal history of nicotine dependence; E78.1 Pure hyperglyceridemia; Z68.34 Body mass index [BMI] 34.0-34.9, adult; E87.1 Hypo-osmolality and hyponatremia; Z79.3 Long term (current) use of hormonal contraceptives; L30.4 Erythema intertrigo; E83.42 Hypomagnesemia